=== PATIENT | female | born 1990 | race Caucasian/White ===

== ENCOUNTER 2019-11-17 21:19 | Emergency (ER) | payer OTHER ==
[~2019-11-17] VITALS: Ht 165.1 cm; Wt 63.5 kg
--- NOTE | 2019-11-17 22:08 | NUR ---
CALLED RT FOR BREATHING TREATMENT
[2019-11-17] MEDS ORDERED: ALBUTEROL FS 2.5 MG/3 ML VIAL.NEB ONE (22:18)
[2019-11-17] MEDS ORDERED: IPRATROPIUM NEB FS 0.5 MG/2.5 ML AMPUL.NEB ONE (22:18)
--- NOTE | 2019-11-17 22:19 | NUR ---
RT AT THE BED SIDE FOR BREATHING TX
[2019-11-17] MEDS ORDERED: ALBUTEROL FS 2.5 MG/3 ML VIAL.NEB NEB ONE (22:30)
[2019-11-17] MEDS ORDERED: IPRATROPIUM NEB FS 0.5 MG/2.5 ML AMPUL.NEB NEB ONE (22:30)
--- NOTE | 2019-11-17 23:05 | NUR ---
Patient discharged to home in stable condition. Rx and Written and verbal after care instructions given. Patient verbalizes understanding of instruction.
[2019-11-17 23:34] VITALS: BP 128/72
== END 2019-11-17 23:05 | disposition home or self-care (01) ==
LOC: ER 21:22
DX: J20.9 Acute bronchitis, unspecified (principal)